=== PATIENT | male | born 1980 | race Caucasian/White ===

== ENCOUNTER 2018-04-01 20:17 | Emergency (ER) | payer BC ==
[~2018-04-01] VITALS: Ht 185.4 cm; Wt 88.6 kg
[2018-04-01 20:23] VITALS: BP 118/68; TEMP 98.9
[2018-04-01] MEDS ORDERED: CILOXAN 5 ML5 ML OS (21:48)
[2018-04-01 22:06] VITALS: PULSE 68
== END 2018-04-01 22:06 | disposition home or self-care (01) ==
LOC: COL.ER 20:17
DX: S05.02XA Injury of conjunctiva and corneal abrasion without foreign body, left eye, initial encounter (principal); X58.XXXA Exposure to other specified factors, initial encounter; Y93.G1 Activity, food preparation and clean up